=== PATIENT | male | born 1965 | race African-American/Black ===

== ENCOUNTER → 2016-07-27 | Outpatient (CLI) | payer OTHER ==
[~2016-07-27] MED LIST: ANDROGEL5 GM TD; BAYER ASPIRIN325 M1 PO; CIALIS5 MG PO; CRESTOR; CRESTOR PO; INVOKANA100 MG PO; TESTOSTERONE5 GM; TRADJENTA5 MG
[2016-07-27 14:18] LABS: CALCIUM SERUM 9.2 mg/dL (8.4-10.2); CREATININE SERUM 1.4 mg/dL (0.6-1.4); GLOM FILT RATE Estimated 66.5 mL/min (>60); POTASSIUM 4.4 mmol/L (3.5-5.1)
== END | disposition home or self-care (01) ==
LOC: CLAB 13:00
PROVIDERS: Internal Medicine
DX: E11.9 Type 2 diabetes mellitus without complications (principal); E78.2 Mixed hyperlipidemia
CPT/HCPCS: 36415; 80048; 82550; 83036

== ENCOUNTER → 2016-11-06 | Outpatient (CLI) | payer OTHER ==
[2016-11-06 14:49] LABS: HEMATOCRIT 46.5 % (38.0-50.0); HEMOGLOBIN 14.5 gm/dL (13.0-16.0); MEAN CELL VOLUME 79.9 FL (83-96); MEAN CORPUSCULAR HGB CONC 31.3 g/dL (30-36); MEAN PLATELET VOLUME 7.9 FL (6.5-11.5); RED BLOOD COUNT 5.81 X10e (3.90-5.60); RED CELL DISTRIBUTION WIDTH 15.8 % (11.0-15.5); WHITE BLOOD COUNT 7.4 X10e3 (4.0-10.5)
[2016-11-06 15:44] LABS: PROSTATE SPECIFIC AG DIAG 0.19 ng/ml (0.0-4.0)
[2016-11-09 11:36] LABS: TESTOSTERONE FREE (PNL) 48.5 pg/mL (35.0-155.0)
== END | disposition home or self-care (01) ==
LOC: CLAB 14:07
PROVIDERS: Internal Medicine
DX: E11.9 Type 2 diabetes mellitus without complications (principal)
CPT/HCPCS: 36415; 80061; 82550; 84153; 84402; 84403; 85027

== ENCOUNTER 2016-11-26 07:39 | Emergency (ER) | payer OTHER ==
[~2016-11-26] VITALS: Ht 188 cm; Wt 147.4 kg
--- NOTE | ~2016-11-26 | CT71 ---
[facility] A Service of [facility] RADIOLOGY TEXT RESULTS PATIENT: JAUN TEMPLE LOCATION: [facility] : 63 UNIT #: [id number] AGE: [address]: John Leach MD SEX: M ORDER DR: [id number] [facility] [address] [place], [place] [address] [id number] E MR#: [id number] Acc #: [id number] NAME: JAUN TEMPLE : 1965 SEX: M STUDY DATE/TIME: 11/26/2016 8:49 UNIT: [facility] ROOM: STUDY DESCRIPTION: CT Head Wo Contrast Attending Physician: John Leach M.D. Referring Physician: Regino Arzate M.D. Ordering Physician: Laila Gonsalez P.A.-C. Primary Care Physician: Regino Arzate M.D. MEDICAL IMAGING REPORT This report is preliminary unless electronic signature is present EXAM CT of the head without contrast. INDICATION Headache for 2 weeks, as well as neck tenderness. TECHNIQUE Axial CT images were obtained from the vertex of the skull through the skull base. No intravenous contrast material was administered. This CT exam was performed with one or more of the following radiation dose reduction techniques: automatic exposure control, adjustment of mA and/or kV according to patient size, and iterative reconstruction. FINDINGS This patient has a left frontal subdural acute on chronic hematoma which measures up to 10.8 cm in length and about 1.1 cm in thickness. It is associated with significant midline shift to the right by about 8-9 mm and significant effacement of the left lateral ventricle. These are all new findings when compared to a prior CT from May 27, 2016. There is also a temporal component to this hematoma. Visualized paranasal sinuses and mastoid air cells appear clear. No aggressive osseous abnormality or calvarial fracture is seen. I do not see any focal soft tissue abnormalities. IMPRESSION Large left frontal hwljf-ib-daalwnz subdural hematoma with associated midline shift and effacement of the left lateral ventricle. This is a new finding when compared to May 27, 2016. There is also a left temporal component, as well. Correlation with any history of trauma and/or anticoagulant use is recommended. No overlying signs of trauma are identified. Findings were relayed to Dr. Leach in the emergency [facility]. [facility] A Service of [facility] RADIOLOGY TEXT RESULTS PATIENT: JAUN TEMPLE LOCATION: [facility] : 63 UNIT #: [id number] AGE: [address]: John Leach MD SEX: M ORDER DR: department at the time of this dictation. Dictated by... Rowan Buitrago M.D. THIS IS AN ELECTRONICALLY VERIFIED REPORT Rowan Buitrago M.D. at 11/26/2016 4:47 PM AFF/tmw TD: 11/26/2016 11:44 JOB #: [id number] MEDICAL IMAGING REPORT Page 1 of 1 COPY
--- NOTE | ~2016-11-26 | CT52 ---
[facility] A Service of [facility] RADIOLOGY TEXT RESULTS PATIENT: JAUN TEMPLE LOCATION: [facility] : 63 UNIT #: [id number] AGE: [address]: John Leach MD SEX: M ORDER DR: [id number] [facility] [address] [place], [place] [address] [id number] E MR#: [id number] Acc #: [id number] NAME: JAUN TEMPLE : 1965 SEX: M STUDY DATE/TIME: 11/26/2016 8:47 UNIT: [facility] ROOM: STUDY DESCRIPTION: CT Cervical Spine Wo Cont Attending Physician: John Leach M.D. Referring Physician: Regino Arzate M.D. Ordering Physician: Laila Gonsalez P.A.-C. Primary Care Physician: Regino Arzate M.D. MEDICAL IMAGING REPORT This report is preliminary unless electronic signature is present EXAM Cervical spine CT, 11/26/2016. INDICATIONS Neck pain and headache for 2 weeks. No trauma. TECHNIQUE Axial images were obtained through the cervical spine without contrast. Multiplanar reformats were obtained. This CT exam was performed with one or more of the following radiation dose reduction techniques: automatic exposure control, adjustment of mA and/or kV according to patient size, and iterative reconstruction. COMPARISON No comparison. FINDINGS No fracture or subluxation is seen. At C2-3, the disc is normal. There is some mild right-sided facet arthropathy. At C3-4, the disc is normal. At C4-5, there is a broad-based posterior disc osteophyte complex with mild narrowing of the central canal and both foramina. At C5-6, there is a larger broad-based posterior disc osteophyte complex with moderate central canal stenosis and bilateral neural foraminal narrowing. At C6-7, there is broad-based disc osteophyte complex without central canal or foraminal narrowing. [facility] A Service of [facility] RADIOLOGY TEXT RESULTS PATIENT: JAUN TEMPLE LOCATION: [facility] : 63 UNIT #: [id number] AGE: [address]: John Leach MD SEX: M ORDER DR: At C7-T1, disc is grossly normal. IMPRESSION No fracture or subluxation. Multilevel degenerative disc disease, most severe at C5-6. Dictated by... Flip Rivas Jr., M.D. THIS IS AN ELECTRONICALLY VERIFIED REPORT Flip Rivas Jr., M.D. at 11/26/2016 4:49 PM YANG/mauricio TD: 11/26/2016 11:40 JOB #: [id number] MEDICAL IMAGING REPORT Page 1 of 1 COPY
[2016-11-26 10:19] LABS: BASOPHIL% 0.6 % (0-2.5); EOSINOPHIL# 0.1 X10e3 (0-0.7); EOSINOPHIL% 2.2 % (0.0-7.0); HEMATOCRIT 44.6 % (38.0-50.0); HEMOGLOBIN 14.3 gm/dL (13.0-16.0); LYMPHOCYTE# 1.2 X10e3 (1.0-3.5); MEAN CELL VOLUME 79.7 FL (83-96); MEAN CORPUSCULAR HEMOGLOBIN 25.5 PG (28-34); MEAN PLATELET VOLUME 8.5 FL (6.5-11.5); MONOCYTE# 0.5 X10e3 (0-1.0); NEUTROPHIL# 3.7 X10e3 (1.5-7.1); NEUTROPHIL% 67.2 % (40-75); PLATELET COUNT 319 X10e3 (140-420); RED CELL DISTRIBUTION WIDTH 16.5 % (11.0-15.5); WHITE BLOOD COUNT 5.5 X10e3 (4.0-10.5)
[2016-11-26 10:21] LABS: DIFF IND NO
[2016-11-26 10:31] LABS: PARTIAL THROMBOPLASTIN TIME 27.8 SECONDS (23.5-31.3); PROTHROMBIN TIME (PATIENT) 10.8 SECONDS (10.0-11.7)
[2016-11-26 11:00] LABS: ALBUMIN SERUM 4.1 g/dL (3.5-5.0); BILIRUBIN,TOTAL 0.6 mg/dL (0.2-2.0); BUN/CREATININE RATIO 10.9; CALCIUM SERUM 9.2 mg/dL (8.4-10.2); CREATININE SERUM 1.1 mg/dL (0.6-1.4); PROTEIN TOTAL SERUM 7.3 g/dL (6.0-8.3)
== END 2016-11-26 11:10 | disposition hospice, home (50) ==
LOC: CED 07:39
PROVIDERS: Emergency Medicine
DX: R51 Headache (principal); E11.9 Type 2 diabetes mellitus without complications; I10 Essential (primary) hypertension; Z98.890 Other specified postprocedural states; Z88.5 Allergy status to narcotic agent
CPT/HCPCS: 36415; 70450; 72125; 80053; 82947; 85025; 85610; 85730; 96361; 96374; 96375; 99284; J1100; J1200; J1885; J2765